=== PATIENT | female | born 1980 | race Caucasian/White ===

== ENCOUNTER 2016-10-19 21:22 | Emergency (ER) | payer OTHER ==
[2016-10-19] MEDS ORDERED: OPTIRAY 350 100 ML VIAL HMH IV ONE (21:23)
[2016-10-20] MEDS ORDERED: DILAUDID 1 MG/ML AMP ONE (00:36)
[2016-10-20] MEDS ORDERED: SODIUM CHLORIDE 0.9% 1,000 ML ONE (00:37)
[2016-10-20] MEDS ORDERED: ONDANSETRON 4 MG VIAL ONE (00:37)
[2016-10-20] MEDS ORDERED: KETOROLAC 30 MG/ML VIAL ONE (00:37)
[2016-10-20] MEDS ORDERED: DICYCLOMINE 20MG/2ML VIAL IM ONE (02:24)
== END 2016-10-20 03:12 | disposition home or self-care (01) ==
LOC: ER 21:22
CPT/HCPCS: 36415; 74177; 80053; 81001; 83690; 84703; 85025; 96361; 96372; 96374; 96375